=== PATIENT | female | born 1940 | race Caucasian/White ===

== ENCOUNTER 2017-04-19 07:29 | Day surgery (SDC) | payer MEDICARE ==
[2017-04-16 10:20] VITALS: BMI 35.0
[~2017-04-19 07:29] MED LIST: LACTATED RINGERS 1,000 ML IV SCH; LIDOCAINE 1% 20 ML VIAL (10MG/ML) FOR IV START INTRADERMA PRN
[2017-04-19 07:51] VITALS: RESP 18; TEMP 97
[2017-04-19 08:03] LABS: Glucose,Whole Blood 134 mg/dL (75-99)
[2017-04-19] MEDS ORDERED: PROPOFOL 10 MG/ML 20 ML VIAL IV ONE (08:48)
--- NOTE | 2017-04-19 09:16 | P.PCN ---
Date of Procedure: 04/19/17 Preoperative Diagnosis: Postoperative Diagnosis: Procedure(s) Performed: Brief history: Patient is a pleasant 76-year-old white female, scheduled for an elective upper endoscopy as well as colonoscopy as a part of evaluation of abdominal pain, change in bowel habits and prior history of colon polyps. She had a large cecal polyp for which she underwent surgical resection in 2011. Procedure performed: Esophagogastroduodenoscopy with biopsy Colonoscopy Preoperative diagnosis: Abdominal pain, change in bowel habits History of colon polyps Anesthesia: MAC Procedure: After informed consent was obtained from the patient was brought into the endoscopy unit and IV sedation was administered by anesthesia under continuous monitoring. Initially upper endoscopy was done. The Olympus GF 160 video endoscope was inserted inserted into the mouth and esophagus intubated without any difficulty and was gradually advanced into the stomach and duodenum and carefully examined. The bulb and second part of the duodenum appeared normal. The scope was then withdrawn into the stomach adequately insufflated with air and upon careful examination the antrum and body appeared normal. In the cardia of the stomach there was a 5 mm polyp that was removed biopsied. The rest of the, cardia and fundus appeared normal. The scope was then withdrawn into the esophagus. The GE junction was located at 40 cm to the incisors. It appeared regular with no erythema erosions or ulcerations. Rest of the esophagus appeared normal. Patient tolerated the procedure well. At this time the patient continued to remain sedation. Initial digital rectal examination was normal. Olympus CF 160 video colonoscope was then inserted into the rectum and gradually advanced to the right colon and ileocolonic anastomosis was visualized and appeared normal. The ascending colon, transverse colon, descending colon, sigmoid colon and rectum appeared normal. Scattered sigmoid diverticulosis seen. Retroflexion was performed in the rectum and no lesions were noted. Patient tolerated the procedure well. Impression: 1. Upper endoscopy revealed small polyp in the cardia of the stomach status post biopsy with the rest of the stomach appeared normal. 2. Colonoscopy revealed scattered sigmoid diverticula cyst but no evidence of colorectal neoplasia. Recommendations: Findings of this examination were discussed with the patient as well as her family. She was advised to follow with the biopsy results. She can have a repeat colonoscopy in 5 years Implants: Indications for Procedure: Operative Findings: Description of Procedure:
[2017-04-19 09:27] LABS: Glucose,Whole Blood 123 mg/dL (75-99)
[2017-04-19 09:59] VITALS: BP 183/85; PULSE 65
== END 2017-04-19 10:20 | disposition home or self-care (01) ==
LOC: ORWHC2ENDO 07:29
PROVIDERS: ATTEND Internal Medicine Gastroenterology
DX: K29.50 Unspecified chronic gastritis without bleeding (principal); B96.81 Helicobacter pylori [H. pylori] as the cause of diseases classified elsewhere; K57.30 Diverticulosis of large intestine without perforation or abscess without bleeding; Z86.010 Personal history of colon polyps; K31.7 Polyp of stomach and duodenum; I10 Essential (primary) hypertension; I48.91 Unspecified atrial fibrillation; Z79.01 Long term (current) use of anticoagulants; Z95.0 Presence of cardiac pacemaker; E11.9 Type 2 diabetes mellitus without complications; Z79.84 Long term (current) use of oral hypoglycemic drugs; Z79.899 Other long term (current) drug therapy
CPT/HCPCS: 88305; 88342; 45378; 43239; J2704

== ENCOUNTER 2020-12-11 20:08 | Emergency (ER) | payer MEDICARE ==
[~2020-12-11 20:08] MED LIST changes: +CALCIUM CHLORIDE 100 MG/ML 10 ML SYRINGE ONE; +EPINEPHrine 10 ML SYRINGE (0.1 MG/ML) ONE; -LACTATED RINGERS 1,000 ML IV SCH; -LIDOCAINE 1% 20 ML VIAL (10MG/ML) FOR IV START INTRADERMA PRN; +SODIUM BICARB 8.4% 50 ML SYR (1 MEQ/ML) ONE
[2020-12-11 20:23] LABS: Glucose,Whole Blood 290 mg/dL (75-99)
--- NOTE | 2020-12-11 20:28 | ED ---
General Adult HPI - General Stated complaint: Cardiac Arrest Time Seen by Provider: 12/11/20 20:19 Source: EMS Mode of arrival: EMS Limitations: altered mental status - History of Present Illness Initial comments: Patient presents the ED by ambulance in cardiac arrest with CPR in progress. Per EMS, the patient had a witnessed cardiac arrest, and they received a call requesting an ambulance at 1919. Per EMS, CPR was in progress when they arrived on scene, and they continued CPR with Junito chest compression device. Per EMS, the patient was in ventricular fibrillation when they arrived on scene, and she was defibrillated once, and she has been in PE 8%. Per EMS the patient was given 6 doses of epinephrine prior to ED arrival. Patient arrives to the ED with a Nathaniel LT tube in place. Per EMS, the patient has also been having bloody discharge from her nose and mouth with chest compressions. Per EMS, the patient's blood glucose was checked and was within normal limits. No intubating meds were given per EMS. a - Related Data Home Medications Medication Instructions Recorded Confirmed Celecoxib [CeleBREX] 200 mg PO DAILY 04/16/17 04/16/17 Furosemide [Lasix] 20 mg PO DAILY 04/16/17 04/16/17 Losartan/Hydrochlorothiazide 1 each PO DAILY 04/16/17 04/16/17 [Losartan-Hctz 100-25 mg Tab] Simvastatin [Zocor] 40 mg PO HS 04/16/17 04/16/17 Warfarin [Coumadin] 5 mg PO DAILY 04/16/17 04/16/17 hydrALAZINE HCL [Hydralazine HCl] 25 mg PO BID 04/16/17 04/19/17 metFORMIN HCL [Glucophage] 500 mg PO BID 04/16/17 04/16/17 sitaGLIPtin [Januvia] 100 mg PO DAILY 04/16/17 04/16/17 Allergies Allergy/AdvReac Type Severity Reaction Status Date / Time No Known Allergies Allergy Verified 04/16/17 10:11 Review of Systems ROS Statement: Those systems with pertinent positive or pertinent negative responses have been documented in the HPI. ROS Other: All systems not noted in ROS Statement are negative. Limitations: ROS unobtainable due to patients medical condition Past Medical History Past Medical History: Atrial Fibrillation, Diabetes Mellitus, Hyperlipidemia, Hypertension Additional Past Medical History / Comment(s): PACEMAKER History of Any Multi-Drug Resistant Organisms: None Reported Past Surgical History: Appendectomy, Bowel Resection, Cholecystectomy, Hysterectomy, Pacemaker, Tonsillectomy Additional Past Surgical History / Comment(s): BILAT CATARACTS. COLONOSCOPY Past Anesthesia/Blood Transfusion Reactions: No Reported Reaction Type of Cardiac Device: Permanent Pacemaker Device Placement Date:: 04/23/[id number] Past Psychological History: Depression Additional Psychological History / Comment(s): 2 MONTHS AGO Past Alcohol Use History: None Reported Additional Past Alcohol Use History / Comment(s): QUIT 2004 Past Drug Use History: None Reported - Past Family History Mother Family Medical History: No Reported History General Exam General appearance: other (GCS = 3; CPR is in progress) Head exam: Present: atraumatic Eye exam: Present: other (Pupils are fixed and dilated) ENT exam: Present: other (Bloody drainage is noted coming from the patient's mouth and naris with chest compressions) Neck exam: Present: other (Trachea is in midline) Respiratory exam: Present: other (Course breath sounds bilaterally with bagging; equal breath sounds bilaterally with bagging; no spontaneous respirations) Cardiovascular Exam: Present: other (CPR is in progress with Junito chest compression device) GI/Abdominal exam: Present: soft, other (Obese abdomen) Extremities exam: Present: normal inspection Neurological exam: Present: other (GCS + 3; pupils are fixed and dilated; no spontaneous respirations; no spontaneous movements) Skin exam: Present: dry, pallor, other (Cool) Course - Reevaluation(s) Reevaluation #1: 12/11/20 20:42 Patient's 2 daughters and 2 son-in-law's are now in the ED, and they have been made aware of the patient's . Daughter states that the patient's PCP was Dr. Radford at [facility]. All of the family's questions have been answered. Medical Decision Making - Medical Decision Making Patient was given 2 more doses of IV epinephrine in the ED, as well as IV calcium and IV sodium bicarbonate. Patient was also defibrillated twice in the ED secondary to ventricular fibrillation rhythm on the pvc monitor. Resuscitative efforts were stopped and patient was pronounced at 20:18 secondary to futility of efforts. Patient was in PEA at time of cessation of resuscitation. Patient's pupils were fixed and dilated and she had a GCS score of 3. yarn skeins examiner was contacted myself and they have released the patient's body. - Lab Data Lab Results 12/11/20 Range/Units 20:13 POC Glucose (mg/dL) 290 H (75-99) mg/dL POC Glu Metal Trim Erector ID Kendall Trujillo Critical Care Time Critical Care Time: Yes Total Critical Care Time: 45 (Cardiac arrest) Disposition Clinical Impression: Cardiac arrest, Disposition: Is patient prescribed a controlled substance at d/c from ED?: No Referrals: None,Stated [Primary Care Provider] - 1-2 days Time of Disposition: 20:18 Preliminary Cause of : Cardiac arrest
== END 2020-12-12 01:47 | disposition expired ==
LOC: EC 20:08
DX: I46.9 Cardiac arrest, cause unspecified (principal); F32.9 Major depressive disorder, single episode, unspecified; I48.91 Unspecified atrial fibrillation; E11.9 Type 2 diabetes mellitus without complications; E78.5 Hyperlipidemia, unspecified; I10 Essential (primary) hypertension; Z79.84 Long term (current) use of oral hypoglycemic drugs; Z79.01 Long term (current) use of anticoagulants; Z79.899 Other long term (current) drug therapy; Z95.0 Presence of cardiac pacemaker; Z90.49 Acquired absence of other specified parts of digestive tract; Z90.710 Acquired absence of both cervix and uterus; Z98.42 Cataract extraction status, left eye; Z98.41 Cataract extraction status, right eye
CPT/HCPCS: 36415; 99291; 92950; J0171